=== PATIENT | male | born 1980 | race Two or more races ===

== ENCOUNTER 2020-02-29 08:25 | Outpatient (CLI) | payer OTHER | END 2020-02-29 08:42 | disposition home or self-care (01) | LOC: SONOGRAMA 08:25 | DX: R10.84 Generalized abdominal pain (principal) ==

== ENCOUNTER 2021-11-05 20:56 | Outpatient (CLI) | payer OTHER | END 2021-11-05 23:00 | disposition home or self-care (01) | LOC: LAB 20:56 | DX: Z11.52 Encounter for screening for COVID-19 (principal); Z13.9 Encounter for screening, unspecified; B96.3 Hemophilus influenzae [H. influenzae] as the cause of diseases classified elsewhere ==